=== PATIENT | male | born 1975 | race Caucasian/White ===

== ENCOUNTER 2025-07-26 19:32 | Emergency (ER) | payer SELFPAY ==
[2025-07-26] VITALS (7 sets, daily range): BP systolic 87–142; BP diastolic 57–97; PULSE 77–117; RESP 16–18; TEMP 36.4; O2SAT 95–100
--- NOTE | ~2025-07-26 | XR_ITS ---
Examination: XR abdomen gastric tube insert Clinical History: NG tube placement Comparison: CT 1 day prior Technique: Portable AP Findings/impression: 1. NG tube within stomach. 2. Nonspecific bowel gas pattern. 3. Dystrophic calcifications right upper quadrant. Reviewed, dictated and finalized at location R. PORT SUPPORT ASSOCIATE
--- NOTE | ~2025-07-26 | CT_ITS ---
EXAMINATION: CTA chest PE abdomen pel DATE: 07/26/2025 20:56 INDICATION: Syncope. Abdominal pain. TECHNIQUE: Computed tomography angiography (CTA) of the chest was performed with 100 mL Omnipaque-350 intravenous contrast timed to evaluate the pulmonary arteries. Coronal maximum intensity projection 3D-reconstructions were created by the technologist. Computed tomography (CT) of the abdomen and pelvis was performed with intravenous contrast. Automated exposure control and iterative reconstruction technique were employed. The dose-length product was 2029.44 mGy-cm. COMPARISON: CT abdomen and pelvis 06/08/2019 FINDINGS: CTA chest: The lungs demonstrate mild atelectasis. No pleural effusion. There is fluid in the esophagus. The heart size is normal. No pericardial effusion. There is no pulmonary embolus. There is mild chronic height loss of multiple vertebral bodies. There is moderate thoracic spondylosis. CT abdomen and pelvis: The stomach is distended. There is a 2.4 cm pseudoaneurysm of the splenic artery involving the wall of the stomach. Much of the material measuring soft tissue attenuation in the stomach is likely hematoma. Pneumobilia is noted, likely secondary to prior sphincterotomy. The liver is normal. The gallbladder is normal in size. The spleen is normal. There is high attenuation material near the pancreas that may be embolization material. There is chronic nodular thickening of the adrenal glands, likely benign. Right kidney is normal. There are cysts in left kidney measuring up to 2.1 cm. There are bilateral inguinal hernias containing fat. The prostate is moderately enlarged. The appendix is normal. There are no dilated loops of bowel. There are no pathologically enlarged lymph nodes. There is no free intraperitoneal fluid. There is severe lumbar spondylosis. 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 There is 3 mm anterolisthesis of L5 on S1. IMPRESSION: 1. Pseudoaneurysm of the splenic artery involving the wall of the stomach. Much of the material in the stomach is likely recent hematoma. 2. No pulmonary embolus. Reviewed, dictated and finalized at location E. ENT LIAISON OFFICER
--- NOTE | ~2025-07-26 | CT_ITS ---
EXAMINATION: CT brain wo con DATE: 07/26/2025 20:56 INDICATION: Syncope. TECHNIQUE: Computed tomography (CT) of the head was performed without intravenous contrast. The mA was adjusted according to patient size. Iterative reconstruction technique was employed. The dose-length product was 681.00 mGy-cm. COMPARISON: Head CT 04/16/2019 FINDINGS: There is an old infarct involving the right basal ganglia, anterior limb right internal capsule, and right frontal lobe tan radiata. There is no intracranial hemorrhage, acute infarction, or abnormal intracranial mass lesion. The ventricles are normal in size. The orbits are normal. There is a 1.6 cm mass containing fat in the right sphenoid sinus, consistent with a hemangioma. There is mild mucosal thickening in the paranasal sinuses. The mastoid air cells are normal. IMPRESSION: 1. 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 Reviewed, dictated and finalized at location E. CLEANER
--- NOTE | 2025-07-26 19:28 | ECG_ITS ---
Test Date: 2025-07-26 19:37:31 Measurements Intervals [place] Rate: 103 P: 36 CT: 157 QRS: -5 QRSD: 88 T: 49 QT: 377 QTc: 495 Interpretive Statements SINUS TACHYCARDIA VOLTAGE CRITERIA FOR LVH CONSIDER INFERIOR INFARCT, AGE INDETERMINATE BASELINE ARTIFACT- I, III, AVR, AVL, AVF, V4 ABNORMAL ECG No previous ECG available for comparison Electronically Signed On 07-27-2025 05:48:32 BIOSTATISTICS TEACHER by Jered Rojas D.O.
[2025-07-26] MEDS: SODIUM CHLORIDE 0.9% IV 1,000 ML 999 ML IV CONT ×3 (20:04→21:20)
[2025-07-26 20:06] LABS: Hematocrit 22.1 % (42.0-52.0); Immature Granulocyte Percent A 0.9 % (0-0.5); Lymphocytes Absolute Auto 2.31 K/mm3 (0.9-3.2); Mean Corpuscular HGB Conc 29.4 g/dl (32-36); Mean Corpuscular Hemoglobin 22.2 pg (26-34); Mean Corpuscular Volume 75.4 fl (80-100); Nucleated Red Blood Cells Absolute Auto 0.000 K/mm3 (0.0-0.012); Nucleated Red Blood Cells Perc 0.0 % (0.0-0.2); Platelet Count Result 381 k/mm3 (150-375); Red Blood Count 2.93 M/mm3 (4.6-6.20); White Blood Count 18.6 K/mm3 (4.5-10.0)
--- NOTE | 2025-07-26 20:17 | ED_ITS ---
HPI - General Adult General Chief complaint: Abdominal Pain Stated complaint: ABD PAIN SINCE 1800; SYNCOPE AND NAUSEA Time Seen by Provider: 07/26/25 19:39 History of Present Illness HPI narrative: Patient is a 49-year-old gentleman presents emergency department chief complaint of abdominal pain patient reports that he was eating barbecue started to feel nauseated started throwing up and then had a syncopal episode the patient reports that he did recently have a syncopal episode was seen at [facility] and had another episode this evening the patient states that he feels weak and run down reports no blood in his stool reports a history of GERD but denies any other medical history Related Data Allergies Allergy/AdvReac Type Severity Reaction Status Date / Time No Known Allergies Allergy Unverified 04/16/19 09:43 Review of Systems 2 Review of Systems: A 10 system review of systems was completed on the patient and is negative except for what is stated in the HPI. Nursing and ancillary documentation was reviewed. Exam 2 Narrative: GENERAL: Well-appearing, well-nourished, and in no acute distress. HEAD: Normocephalic, atraumatic. EYES: PERRLA and EOMI. ENT: Nares clear, no rhinorrhea or epistaxis. Mucous membranes moist. NECK: Supple. CHEST: Clear to auscultation. No respiratory distress. HEART: Regular rate and rhythm. No murmur heard. Normal peripheral pulses. ABDOMEN: Soft, nontender, nondistended, normal active bowel sounds. EXTREMITIES: Normal range of motion. No edema. SKIN: Warm, dry, no rash. NEURO: No focal deficits. Alert and oriented x3. PSYCH: Normal mood and affect. Course Vital Signs Vital signs: Vital Signs Temperature 36.4 C L 07/26/25 19:29 Pulse Rate 103 H 07/26/25 19:29 Respiratory Rate 16 07/26/25 19:29 Blood Pressure 89/61 L 07/26/25 19:29 Pulse Oximetry 100 07/26/25 19:29 Oxygen Delivery Room Air 07/26/25 19:29 Temperature 36.4 C L 07/26/25 19:29 Pulse Rate 93 07/27/25 00:39 Respiratory Rate 18 07/27/25 00:39 Blood Pressure 117/67 07/27/25 01:16 Pulse Oximetry 100 07/27/25 01:16 Oxygen Delivery Room Air 07/26/25 19:29 Medical Decision Making Vital Signs Vital Signs: Vital Signs Temperature 36.4 C L 07/26/25 19:29 Pulse Rate 103 H 07/26/25 19:29 Respiratory Rate 16 07/26/25 19:29 Blood Pressure 89/61 L 07/26/25 19:29 Pulse Oximetry 100 07/26/25 19:29 Oxygen Delivery Room Air 07/26/25 19:29 Temperature 36.4 C L 07/26/25 19:29 Pulse Rate 93 07/27/25 00:39 Respiratory Rate 18 07/27/25 00:39 Blood Pressure 117/67 07/27/25 01:16 Pulse Oximetry 100 07/27/25 01:16 Oxygen Delivery Room Air 07/26/25 19:29 Lab Data 07/26/25 19:55 07/26/25 19:56 Labs: Lab Results 07/26/25 07/26/25 07/26/25 Range/Units 19:40 19:55 19:56 WBC 18.6 H (4.5-10.0) K/mm3 RBC 2.93 L (4.6-6.20) M/mm3 Hgb 6.5 L* (14.0-18.0) g/dL Hct 22.1 L (42.0-52.0) % MCV 75.4 L (80-100) fl MCH 22.2 L (26-34) pg MCHC 29.4 L (32-36) g/dl RDW 18.2 H (11.5-14.5) % Plt Count 381 H (150-375) k/mm3 MPV 9.4 (7.4-10.4) fl Immature Gran % (Auto) 0.9 H (0-0.5) % Neut % (Auto) 79.9 H (45.5-73.1) % Lymph % (Auto) 12.4 L (18.3-44.2) % [place] % (Auto) 5.9 (2.6-8.5) % Eos % (Auto) 0.5 (0-4.4) % Baso % (Auto) 0.4 (0.2-1.2) % Lymph # (Auto) 2.31 (0.9-3.2) K/mm3 [place] # (Auto) 1.1 H (0.1-0.6) K/mm3 Eos # (Auto) 0.1 (0-0.3) K/mm3 Baso # (Auto) 0.1 (0.0-0.1) K/mm3 Abs Immat Gran (auto) 0.16 H (0.00-0.031) K/mm3 Absolute Neuts (auto) 14.8 H (1.3-6.7) K/mm3 Absolute Nucleated RBC 0.000 (0.0-0.012) K/mm3 Band Neutrophils % Not Reportable Nucleated RBC % 0.0 (0.0-0.2) % Platelet Estimate Adequate (Adequate) Hypochromasia 2+ Schistocytes None seen Sodium Cancelled 132 L Potassium Cancelled 3.0 L Chloride Cancelled 100 Carbon Dioxide Cancelled 19 L Anion Gap Cancelled 13 H BUN Cancelled 12 Creatinine Cancelled 1.32 H Estim Creat Clear Calc Cancelled 65 Estimated GFR Cancelled 58 L Glucose Cancelled 324 H POC Capillary Glucose 334 H (65-105) mg/dl Lactic Acid 5.8 H* (0.7-2.0) mmol/L Calcium Cancelled 8.9 Magnesium 1.7 (1.6-2.3) mg/dL Total Bilirubin Cancelled 0.4 AST Cancelled 38 ALT Cancelled 33 Alkaline Phosphatase Cancelled 72 Troponin I 0.049 H* (0.000-0.034) ng/mL C-Reactive Protein 3.7 H (<1.0) mg/dL Total Protein Cancelled 7.3 Albumin Cancelled 4.2 Lipase Cancelled 81 Urine Color (Yellow) Urine Appearance (Clear) Urine pH (5.0-9.0) Ur Specific [place] (1.001-1.035) Urine Protein (Negative) mg/dL Urine Glucose (UA) (Negative) mg/dL Urine Ketones (Negative) mg/dL Ur Blood (Man) (Negative) Urine Nitrate (Negative) Urine Bilirubin (Negative) Urine Urobilinogen (<2.0) mg/dL Add Ur Microanalysis Leukocyte Esterase Rfl (Negative) LUPE/UL Urine RBC (0-2) /hpf Urine WBC (0-3) /hpf Ur Squamous Epith Cells (Few) /hpf Urine Bacteria /hpf Urine Casts Influenza A (RT-PCR) Negative (Negative) Influenza B (RT-PCR) Negative (Negative) RSV (RT-PCR) Negative (Negative) SARS-CoV-2 RNA (RT-PCR) Negative (Negative) Blood Type A Positive Antibody Screen Negative 07/26/25 07/26/25 Range/Units 20:19 22:45 WBC (4.5-10.0) K/mm3 RBC (4.6-6.20) M/mm3 Hgb (14.0-18.0) g/dL Hct (42.0-52.0) % MCV (80-100) fl MCH (26-34) pg MCHC (32-36) g/dl RDW (11.5-14.5) % Plt Count (150-375) k/mm3 MPV (7.4-10.4) fl Immature Gran % (Auto) (0-0.5) % Neut % (Auto) (45.5-73.1) % Lymph % (Auto) (18.3-44.2) % [place] % (Auto) (2.6-8.5) % Eos % (Auto) (0-4.4) % Baso % (Auto) (0.2-1.2) % Lymph # (Auto) (0.9-3.2) K/mm3 [place] # (Auto) (0.1-0.6) K/mm3 Eos # (Auto) (0-0.3) K/mm3 Baso # (Auto) (0.0-0.1) K/mm3 Abs Immat Gran (auto) (0.00-0.031) K/mm3 Absolute Neuts (auto) (1.3-6.7) K/mm3 Absolute Nucleated RBC (0.0-0.012) K/mm3 Band Neutrophils % Nucleated RBC % (0.0-0.2) % Platelet Estimate (Adequate) Hypochromasia Schistocytes Sodium Potassium Chloride Carbon Dioxide Anion Gap BUN Creatinine Estim Creat Clear Calc Estimated GFR Glucose POC Capillary Glucose (65-105) mg/dl Lactic Acid 2.0 (0.7-2.0) mmol/L Calcium Magnesium (1.6-2.3) mg/dL Total Bilirubin AST ALT Alkaline Phosphatase Troponin I 0.168 H* D (0.000-0.034) ng/mL C-Reactive Protein (<1.0) mg/dL Total Protein Albumin Lipase Urine Color Yellow (Yellow) Urine Appearance Cloudy H (Clear) Urine pH 7.0 (5.0-9.0) Ur Specific [place] 1.015 (1.001-1.035) Urine Protein 1+ H (Negative) mg/dL Urine Glucose (UA) Negative (Negative) mg/dL Urine Ketones Trace H (Negative) mg/dL Ur Blood (Man) Negative (Negative) Urine Nitrate Negative (Negative) Urine Bilirubin Negative (Negative) Urine Urobilinogen 1.0 (<2.0) mg/dL Add Ur Microanalysis Reviewed Leukocyte Esterase Rfl 2+ H (Negative) LUPE/UL Urine RBC 0-2 (0-2) /hpf Urine WBC 21-50 H (0-3) /hpf Ur Squamous Epith Cells Occasional (Few) /hpf Urine Bacteria None seen /hpf Urine Casts 11-20 Influenza A (RT-PCR) (Negative) Influenza B (RT-PCR) (Negative) RSV (RT-PCR) (Negative) SARS-CoV-2 RNA (RT-PCR) (Negative) Blood Type Antibody Screen Critical Care Time Critical Care Time Critical Care Time: Yes Total Critical Care Time: 75 Discharge Plan 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
[2025-07-26 20:25] LABS: Hemoglobin 6.5 g/dL (14.0-18.0); Schistocytes None Seen
[2025-07-26 20:26] LABS: Hypochromasia 2+
[2025-07-26 20:33] LABS: Alanine Aminotransferase 33 U/L (6-50); Albumin Level 4.2 g/dL (3.5-5.1); Alkaline Phosphatase 72 U/L (38-126); Anion Gap 13 mmol/L (4-12); Aspartate Amino Transferase 38 U/L (17-59); Bilirubin,Total 0.4 mg/dL (0.2-1.3); Blood Urea Nitrogen 12 mg/dL (9-20); Calcium 8.9 mg/dL (8.4-10.2); Carbon Dioxide 19 mmol/L (22-30); Chloride 100 mmol/L (98-107); Estimated CRCL calculation 65 ml/min; Estimated Glomerular Filt Rate 58; Glucose 324 mg/dL (65-110); Lipase 81 U/L (23-300); Magnesium 1.7 mg/dL (1.6-2.3); Potassium 3.0 mmol/L (3.4-5.0); Sodium 132 mmol/L (137-145); Total Protein 7.3 g/dL (6.3-8.2)
[2025-07-26 20:42] LABS: Influenza A QL RT-PCR Negative (Negative); Influenza B QL RT-PCR Negative (Negative); RSV RNA, RT-PCR Negative (Negative); SARS-CoV-2 RNA PCR Negative (Negative); Troponin I 0.049 ng/mL (0.000-0.034)
--- NOTE | 2025-07-26 20:49 | PC.NURSE ---
pt in CT
[2025-07-26] MEDS: MAGNESIUM SULF 1 GM/D5W 100 ML 1 GM/100 ML BAG IVPB (21:26)
[2025-07-26] MEDS: CEFEPIME 2 GM in SODIUM CHLORIDE 0.9% IV 50 ML 100 ML IVPB (21:28)
[2025-07-26 21:33] LABS: CRP 3.7 mg/dL (<1.0)
[2025-07-26 21:34] LABS: Add Urine Microscopic? YES; Appearance Urine Cloudy (Clear); Glucose Urine UA Negative (Negative); Leukocyte Esterase Ur 2+ LEU/UL (Negative); Need Manual Microscopic Reviewed; Nitrate Urine Negative (Negative); Specific Grav Ur 1.015 (1.001-1.035)
[2025-07-26] MEDS: VANCOMYCIN 1,250 MG/NS 250 ML 1,250 MG/250 ML BAG 166.67 MG IVPB (21:48)
--- NOTE | 2025-07-26 22:45 | ECG_ITS ---
Test Date: 2025-07-26 22:51:04 Measurements Intervals [place] Rate: 78 P: 49 [place]: 175 QRS: -3 QRSD: 91 T: 57 QT: 397 QTc: 455 Interpretive Statements SINUS RHYTHM INCOMPLETE RIGHT BUNDLE BRANCH BLOCK VOLTAGE CRITERIA FOR LVH CONSIDER INFERIOR INFARCT, AGE INDETERMINATE BORDERLINE ST-T WAVE ABNORMALITY- ANT/HIGH LAT LEADS ABNORMAL ECG Compared to ECG 07/26/2025 19:37:31 HEART RATE HAS DECREASED Electronically Signed On 07-27-2025 05:53:44 SUPERVISOR BORDER DEPARTMENT by Jered Rojas D.O.
[2025-07-26] MEDS: VANCOMYCIN HCL 1,000 MG in SODIUM CHLORIDE 0.9% IV 250 ML 250 MG IVPB (23:17)
[2025-07-26 23:46] LABS: Troponin I 0.168 ng/mL (0.000-0.034)
[2025-07-27] VITALS (10 sets, daily range): BP systolic 90–130; BP diastolic 60–73; PULSE 86–106; RESP 15–21; TEMP 36.8–36.9; O2SAT 96–100
[2025-07-27 02:22] LABS: Hemoglobin 4.5 g/dL (14.0-18.0)
[2025-07-27 02:23] LABS: Hematocrit 15.3 % (42.0-52.0)
[2025-07-27] MEDS: PANTOPRAZOLE SODIUM IV 40 MG VIAL IV PUSH (02:38)
[2025-07-27] MEDS: TUBING, BLOOD SET 1 EACH XX ×2 (03:08→03:32)
[2025-07-27] MEDS: SODIUM CHLORIDE 0.9% IV 250 ML 30 ML IV CONT (03:08)
--- NOTE | 2025-07-27 03:08 | PC.NURSE ---
Abd x-ray reviewed, NGT okay to be used on low int suction per Dr. Skinner
[2025-07-27] MEDS: SODIUM CHLORIDE 0.9% IV 250 ML 30 ML (03:32)
--- NOTE | 2025-07-27 03:35 | PC.NURSE ---
Per Dr. Skinner, administer both blood transfusion for [facility] transport to [place]
== END 2025-07-27 03:46 | disposition short-term general hospital (02) ==
PROVIDERS: Emergency Provider Emergency Medicine
DX: I72.8 Aneurysm of other specified arteries (principal); Z20.822 Contact with and (suspected) exposure to COVID-19; K21.9 Gastro-esophageal reflux disease without esophagitis; R00.0 Tachycardia, unspecified; R94.31 Abnormal electrocardiogram [ECG] [EKG]; I45.10 Unspecified right bundle-branch block
CPT/HCPCS: 36415; 36430; 70450; 71275; 74177; 80053; 81001; 82948; 83605; 83690; 83735; 84484; 85014; 85018; 85025; 86140; 86850; 86900; 86901; 86920; 87086; 87637; 93005; 96361; 96365; 96366; 96367; 96374; 99285; J0692; J2470; J3373; J3475; J7030; J7050; P9016; Q9967